=== PATIENT | male | born 1995 | race African-American/Black ===

== ENCOUNTER 2021-11-03 08:36 | Outpatient (CLI) | payer OTHER | END 2021-11-03 08:37 | disposition home or self-care (01) | LOC: CSHRAD 08:36 | PROVIDERS: ATTEND Psychiatry & Neurology Neurology | DX: S69.92XA Unspecified injury of left wrist, hand and finger(s), initial encounter (principal); S62.002K Unspecified fracture of navicular [scaphoid] bone of left wrist, subsequent encounter for fracture with nonunion ==